=== PATIENT | male | born 1945 | race African-American/Black ===

== ENCOUNTER 2017-07-08 10:23 | Inpatient (IN) | payer MEDICARE, OTHER ==
[~2017-07-08] VITALS: Ht 172.7 cm; Wt 89.8 kg
[~2017-07-08 10:23] MED LIST: AMIODARONE PO; AMLO10TA80 PO; ASPI-1159 PO; ATEN-42 PO; FISH OIL OMEGA 3; LISI10TA5 PO; NITR0.4T49 SL; OMEP40CA34 PO; PIOG15TA6 PO; PRAV20TA57 PO; SITA1TAB4 PO; [UNRECOGNIZED DRUG - OTHER] PO; vitamin c PO
[2017-07-08] MEDS ORDERED: ONDANSETRON HCL 4MG/2ML VIAL IV STA (11:05)
[2017-07-08] MEDS ORDERED: SODIUM CHLORIDE 0.9% 1,000 ML IV ONE (11:05)
[2017-07-08] MEDS ORDERED: MORPHINE SULFATE 4 MG/ML CPJ (NOT FOR IM USE) IV STA (11:05)
[2017-07-08 11:31] LABS: BASOPHILS % 0.6 % (0.0-2.0); EOSINOPHILS % 2.1 % (0.0-5.0); HEMATOCRIT. 41.9 % (42.0-52.0); LYMPHOCYTES % 11.5 % (20.0-50.0); MEAN CORPUSCULAR HEMOGLOBIN 30.9 pg (28.0-32.0); MEAN CORPUSCULAR VOLUME 92.3 fL (80.0-94.0); MEAN PLATELET VOLUME 8.9 fl (7.4-10.4); MONOCYTES % 11.8 % (2.0-8.0); PLATELET 267 x1000/uL (130-400); RED BLOOD CELL COUNT 4.54 mill/uL (4.7-6.1); RED CELL DISTRIBUTION WIDTH 16.6 % (11.6-14.6)
[2017-07-08 11:44] LABS: INR 1.4; PARTIAL THROMBOPLASTIN TIME 28.2 sec (23.4-31.0); PROTHROMBIN TIME 14.3 sec (9.4-11.6)
[2017-07-08 11:48] LABS: CARBON DIOXIDE 25 mEq/L (21-32); CHLORIDE 102 mEq/L (98-107); TROPONIN I < 0.02 ng/mL (0.00-0.04)
[2017-07-08 12:57] LABS: CLARITY URINE CLEAR (CLEAR); COLOR URINE DARK YELLOW (YELLOW); GLUCOSE URINE NEGATIVE (NEGATIVE); KETONES URINE NEGATIVE (NEGATIVE); LEUKOCYTE ESTERASE URINE NEGATIVE (NEGATIVE); NITRITE URINE NEGATIVE (NEGATIVE); OCCULT BLOOD URINE NEGATIVE (NEGATIVE); PROTEIN URINE NEGATIVE (NEGATIVE); SPECIFIC GRAVITY URINE 1.023 (1.005-1.030)
[2017-07-08] MEDS ORDERED: CLONIDINE 0.1MG TABLET PO PRN (14:00)
[2017-07-08] MEDS ORDERED: IPRATROPIUM/ALBUTEROL 0.5-3(2.5)MG/3ML NEB INH PRN (14:00)
[2017-07-08] MEDS ORDERED: MAGNESIUM/ALUMINUM HYDROXIDE/SIMETHICONE 30ML UDC PO PRN (14:00)
[2017-07-08] MEDS ORDERED: ACETAMINOPHEN 325MG TABLET PO PRN (14:00)
[2017-07-08] MEDS ORDERED: ONDANSETRON HCL 4MG/2ML VIAL IV PRN (14:00)
[2017-07-08 15:03] LABS: HEPATITIS B SURFACE ANTIGEN NEGATIVE
[2017-07-08] MEDS ORDERED: LIDOCAINE HCL 1% 20ML VIAL (Pyxis) INJ ONE (15:28)
[2017-07-08] MEDS ORDERED: SODIUM BICARBONATE 4% (2.4MEQ) 5ML VIAL IV ONE (15:29)
[2017-07-08 15:31] LABS: HEPATITIS B CORE AB IGM NEGATIVE
[2017-07-08 15:33] LABS: HEPATITIS A AB IGM NEGATIVE (NEGATIVE)
[2017-07-08 18:33] VITALS: BP 122/71
[2017-07-08] MEDS ORDERED: SODIUM CHLORIDE 0.9% 1,000 ML IV SCH (18:45)
[2017-07-08] MEDS ORDERED: DEXTROSE 50% WATER 50ML SYRINGE IV PRN (19:15)
[2017-07-08 20:00] VITALS: BP 129/72
[2017-07-08] MEDS ORDERED: INFLUENZA VIRUS VACCINE 0.5ML SYR IM ONE (20:45)
[2017-07-08] MEDS: AMLODIPINE 2.5MG TABLET PO SCH (21:00)
[2017-07-08] MEDS: INSULIN LISPRO 100 UNITS/ML SUBCUT SCH (21:00)
[2017-07-08 21:07] LABS: CREATINE KINASE 32 IU/L (39-308); CREATINE KINASE MB FRACTION 0.8 ng/mL (0.5-3.6); TROPONIN I < 0.02 ng/mL (0.00-0.04)
[2017-07-08] MEDS: BLOOD SUGAR DIAGNOSTIC STRIP TEST SCH (21:08)
[2017-07-08] MEDS: ATENOLOL 25MG TABLET PO SCH (21:25)
[2017-07-08] MEDS ORDERED: CARV12.545 PO (22:03)
[2017-07-08 23:54] LABS: CREATINE KINASE 33 IU/L (39-308)
[2017-07-09] VITALS: BP 114/58
[2017-07-09 04:00] VITALS: BP 113/67
[2017-07-09 06:20] LABS: BASOPHILS % 0.4 % (0.0-2.0); EOSINOPHILS % 3.7 % (0.0-5.0); HEMATOCRIT. 40.8 % (42.0-52.0); HEMOGLOBIN. 13.4 g/dL (14.0-18.0); LYMPHOCYTES % 13.5 % (20.0-50.0); MEAN CORPUSCULAR HEMOGLOBIN 30.7 pg (28.0-32.0); MEAN CORPUSCULAR VOLUME 93.5 fL (80.0-94.0); MEAN PLATELET VOLUME 9.1 fl (7.4-10.4); MONOCYTES % 13.5 % (2.0-8.0); NEUTROPHILS % 68.9 % (40.0-76.0); PLATELET 221 x1000/uL (130-400); RED BLOOD CELL COUNT 4.36 mill/uL (4.7-6.1); RED CELL DISTRIBUTION WIDTH 16.8 % (11.6-14.6)
[2017-07-09 06:41] LABS: CARBON DIOXIDE 23 mEq/L (21-32); CHLORIDE 103 mEq/L (98-107)
[2017-07-09] MEDS: BLOOD SUGAR DIAGNOSTIC STRIP TEST SCH ×2 (06:44→20:20)
[2017-07-09 06:53] LABS: HDL CHOLESTEROL 18 mg/dL (40-59); LDL CHOLESTEROL 74 mg/dL (5-100)
[2017-07-09] MEDS: INSULIN LISPRO 100 UNITS/ML SUBCUT SCH ×2 (08:10→20:26)
[2017-07-09] MEDS: AMLODIPINE 2.5MG TABLET PO SCH ×2 (08:47→20:13)
[2017-07-09] MEDS: ATENOLOL 25MG TABLET PO SCH ×3 (08:47→20:20)
[2017-07-09 08:50] VITALS: BP 101/52
[2017-07-09 09:44] LABS: *AMPHETAMINES SCREEN URINE NEGATIVE (NEGATIVE); *BARBITURATES SCREEN URINE NEGATIVE (NEGATIVE); *BENZODIAZEPINES SCREEN URINE NEGATIVE (NEGATIVE); *COCAINE SCREEN URINE NEGATIVE (NEGATIVE); CANNABINOID URINE SCREEN NEGATIVE (NEGATIVE); METHADONE URINE SCREEN NEGATIVE (NEGATIVE); OPIATES URINE SCREEN NEGATIVE (NEGATIVE); PHENCYCLIDINE URINE SCREEN NEGATIVE (NEGATIVE)
[2017-07-09 12:00] VITALS: BP 115/60
[2017-07-09 16:00] VITALS: BP 107/66
[2017-07-09 20:00] VITALS: BP 118/75
[2017-07-10] VITALS: BP 99/51
[2017-07-10 04:00] VITALS: BP 101/49
[2017-07-10] MEDS: BLOOD SUGAR DIAGNOSTIC STRIP TEST SCH ×4 (05:21→20:23)
[2017-07-10 06:30] LABS: AMMONIA 62 uMol/L (<32)
[2017-07-10 06:41] LABS: BASOPHILS % 0.3 % (0.0-2.0); EOSINOPHILS % 3.9 % (0.0-5.0); HEMATOCRIT. 41.2 % (42.0-52.0); HEMOGLOBIN. 13.7 g/dL (14.0-18.0); LYMPHOCYTES % 13.5 % (20.0-50.0); MEAN CORPUSCULAR HEMOGLOBIN 30.9 pg (28.0-32.0); MEAN CORPUSCULAR VOLUME 92.9 fL (80.0-94.0); MEAN PLATELET VOLUME 9.2 fl (7.4-10.4); MONOCYTES % 12.4 % (2.0-8.0); NEUTROPHILS % 69.9 % (40.0-76.0); PLATELET 198 x1000/uL (130-400); RED BLOOD CELL COUNT 4.44 mill/uL (4.7-6.1); RED CELL DISTRIBUTION WIDTH 16.5 % (11.6-14.6)
[2017-07-10 07:34] LABS: CARBON DIOXIDE 22 mEq/L (21-32); CHLORIDE 104 mEq/L (98-107)
[2017-07-10 08:00] VITALS: BP 104/68
[2017-07-10] MEDS: INSULIN LISPRO 100 UNITS/ML SUBCUT SCH ×4 (08:10→20:33)
[2017-07-10] MEDS: AMLODIPINE 2.5MG TABLET PO SCH ×2 (08:48→20:31)
[2017-07-10] MEDS: ATENOLOL 25MG TABLET PO SCH ×2 (08:49→20:33)
[2017-07-10] MEDS ORDERED: SODIUM POLYSTYRENE SULFONATE 15 G/60 ML BOT PO SCH (10:00)
[2017-07-10 12:00] VITALS: BP 142/99
[2017-07-10 16:00] VITALS: BP 108/67
[2017-07-10 17:12] LABS: ANTI-NUCLEAR ANTIBODIES DIRECT Positive (Negative)
[2017-07-10] MEDS: FUROSEMIDE 40MG TABLET PO SCH (17:29)
[2017-07-10] MEDS: LACTULOSE 20G/30ML UDC PO SCH (17:29)
[2017-07-10] MEDS ORDERED: VANCOMYCIN 1500MG in DEXTROSE 5% WATER 250ML IV NR (18:30)
[2017-07-10 20:09] VITALS: BP 118/66
[2017-07-11 00:24] VITALS: BP 119/68
[2017-07-11 04:00] VITALS: BP 105/65
[2017-07-11 06:25] LABS: AMMONIA 106 uMol/L (<32)
[2017-07-11 06:39] LABS: HEMATOCRIT. 38.2 % (42.0-52.0); HEMOGLOBIN. 12.6 g/dL (14.0-18.0); MEAN CORPUSCULAR VOLUME 94.1 fL (80.0-94.0); MEAN PLATELET VOLUME 9.1 fl (7.4-10.4); PLATELET 210 x1000/uL (130-400); RED BLOOD CELL COUNT 4.06 mill/uL (4.7-6.1)
[2017-07-11 06:59] LABS: PHOSPHORUS 3.8 mg/dL (2.5-4.9)
[2017-07-11] MEDS: BLOOD SUGAR DIAGNOSTIC STRIP TEST SCH ×4 (07:40→21:00)
[2017-07-11 08:10] VITALS: BP 110/69
[2017-07-11] MEDS: INSULIN LISPRO 100 UNITS/ML SUBCUT SCH ×4 (08:10→21:00)
[2017-07-11] MEDS: FUROSEMIDE 40MG TABLET PO SCH (09:23)
[2017-07-11] MEDS: LACTULOSE 20G/30ML UDC PO SCH ×3 (09:23→21:16)
[2017-07-11] MEDS: ATENOLOL 25MG TABLET PO SCH ×2 (09:23→21:15)
[2017-07-11] MEDS: AMLODIPINE 2.5MG TABLET PO SCH ×2 (09:23→21:16)
[2017-07-11 10:07] LABS: COMPLEMENT C3 72 mg/dL (82-167)
[2017-07-11 12:00] VITALS: BP 111/68
[2017-07-11 14:00] LABS: PLATELET ESTIMATE NORMAL
[2017-07-11 16:00] VITALS: BP 111/66
[2017-07-11 20:00] VITALS: BP 115/69
[2017-07-12] VITALS: BP 94/57
[2017-07-12 04:00] VITALS: BP 94/59
[2017-07-12 06:18] LABS: BASOPHILS % 0.5 % (0.0-2.0); EOSINOPHILS % 3.4 % (0.0-5.0); HEMOGLOBIN. 13.8 g/dL (14.0-18.0); LYMPHOCYTES % 14.3 % (20.0-50.0); MEAN CORPUSCULAR HEMOGLOBIN 31.4 pg (28.0-32.0); MEAN CORPUSCULAR VOLUME 93.5 fL (80.0-94.0); MEAN PLATELET VOLUME 9.1 fl (7.4-10.4); NEUTROPHILS % 67.8 % (40.0-76.0); PLATELET 194 x1000/uL (130-400); RED BLOOD CELL COUNT 4.39 mill/uL (4.7-6.1); RED CELL DISTRIBUTION WIDTH 17.2 % (11.6-14.6)
[2017-07-12 06:28] LABS: AMMONIA 64 uMol/L (<32)
[2017-07-12 06:57] LABS: CARBON DIOXIDE 24 mEq/L (21-32); CHLORIDE 101 mEq/L (98-107)
[2017-07-12] MEDS: LACTULOSE 20G/30ML UDC PO SCH ×2 (07:01→15:02)
[2017-07-12] MEDS: BLOOD SUGAR DIAGNOSTIC STRIP TEST SCH ×2 (07:40→13:10)
[2017-07-12] MEDS: INSULIN LISPRO 100 UNITS/ML SUBCUT SCH ×2 (08:09→13:10)
[2017-07-12 08:20] VITALS: BP 104/64
[2017-07-12] MEDS: AMLODIPINE 2.5MG TABLET PO SCH (09:00)
[2017-07-12] MEDS ORDERED: VANCOMYCIN 1250MG in DEXTROSE 5% WATER 250ML IV NR (09:00)
[2017-07-12] MEDS: ATENOLOL 25MG TABLET PO SCH (09:00)
[2017-07-12] MEDS: FUROSEMIDE 40MG TABLET PO SCH (10:29)
[2017-07-12 12:00] VITALS: BP 107/69
[2017-07-12 16:06] VITALS: BP 100/64
[2017-07-12 16:39] VITALS: BP 100/64
== END 2017-07-12 17:35 | disposition home or self-care (01) | DRG 871 ==
LOC: ER 11:15 → 7WST 13:22 → EDBEDREQ 13:26 → ENRESERV 15:44
PROVIDERS: ADMIT Internal Medicine; ATTEND Internal Medicine
PROC: 0W9G3ZZ Drainage of Peritoneal Cavity, Percutaneous Approach (ICD-10-PCS; principal; 2017-07-08)
DX: A41.9 Sepsis, unspecified organism (principal); N17.0 Acute kidney failure with tubular necrosis; E46 Unspecified protein-calorie malnutrition; E72.20 Disorder of urea cycle metabolism, unspecified; E11.22 Type 2 diabetes mellitus with diabetic chronic kidney disease; E87.1 Hypo-osmolality and hyponatremia; R18.8 Other ascites; I13.0 Hypertensive heart and chronic kidney disease with heart failure and stage 1 through stage 4 chronic kidney disease, or unspecified chronic kidney disease; I50.22 Chronic systolic (congestive) heart failure; N39.0 Urinary tract infection, site not specified; D64.9 Anemia, unspecified; E78.00 Pure hypercholesterolemia, unspecified; E78.5 Hyperlipidemia, unspecified; G47.30 Sleep apnea, unspecified; I25.10 Atherosclerotic heart disease of native coronary artery without angina pectoris; K21.9 Gastro-esophageal reflux disease without esophagitis; K42.9 Umbilical hernia without obstruction or gangrene; N18.9 Chronic kidney disease, unspecified; Z79.84 Long term (current) use of oral hypoglycemic drugs; Z79.899 Other long term (current) drug therapy; Z85.028 Personal history of other malignant neoplasm of stomach; Z85.46 Personal history of malignant neoplasm of prostate; Z87.891 Personal history of nicotine dependence; Z90.79 Acquired absence of other genital organ(s); Z95.0 Presence of cardiac pacemaker; Z95.810 Presence of automatic (implantable) cardiac defibrillator; Z79.82 Long term (current) use of aspirin; Z68.30 Body mass index [BMI] 30.0-30.9, adult
CPT/HCPCS: 36415; 49083; 71010; 74176; 76705; 76770; 78582; 80048; 80053; 80061; 80076; 80202; 80305; 81003; 82040; 82140; 82248; 82550; 82553; 82962; 83690; 83735; 83880; 84100; 84153; 84443; 84484; 85025; 85610; 85730; 86038; 86160; 86705; 86709; 86803; 86850; 86900; 87015; 87040; 87045; 87070; 87077; 87086; 87186; 87205; 87340; 87427; 87449; 87493; 89050; 89055; 90686; 93005; 93306; 93970; 96361; 96374; 99285; A9558; J1815; J2405; J3370; J3490; J7030; J7050; J7060; J7620